=== PATIENT | male | born 1960 | race Caucasian/White ===

== ENCOUNTER 2024-01-07 16:29 | Emergency (ER) | payer OTHER, SELFPAY ==
[2024-01-07 16:32] VITALS: BP 173/85; BMI 34.4
--- NOTE | 2024-01-07 18:05 | ED.GENMED ---
History of Present Illness
General
Chief Complaint: Male Genito-Urinary Symptoms
Source: patient
Exam Limitations: none
Time Seen by Provider: 01/07/24 18:04
Nursing documentation reviewed up to this point in time: agreed with
Travel History
Have you had any contact with someone who has COVID-19?: No
Do you have any symptoms of coronavirus? Fever > 100 degrees, chills, cough, shortness of breath, sore throat, loss of taste or smell, muscle aches, or headache?: No
History of Present Illness
History of Present Illness:
63-year-old male with a history of sleep apnea with CPAP, smoker, CAD, HTN, HLD, OR, GERD, IBS, cardiac bypass x 4 in 2014, left total hip replacement, legally blind presents stating he was urinating earlier today he felt something passed through
his penis it did not feel right so he called his and and she noted clots and bloody toilet water. He denies abdominal pain or fever. He denies flank pain. He denies burning frequency or urgency with urination. He states he feels well.
Past History
Past History
ED Past Medical History: Other (optic nn problem, significant visual impairment) and Other (Sleep apnea, uses CPAP at night)
ED Past Surgical History: Cardiac (2015 cardiac bypass Auteri here) and Orthopedic (L hip replaced)
Social History
Tobacco: Former smoker
Alcohol: Occasional
Personal:
Living: with family
Employment: Disabled
Family History
Family History: Other (reviewed and non-contributory)
Review of Systems
Review of Systems
Allergies reviewed?: Yes
All Other Systems: ROS reviewed and negative except as documented in HPI and ROS
Constitutional: Denies fever or chills
EENT: Reports other (Visual impairment)
Respiratory: Denies trouble breathing
Cardiac: Denies chest pain
ABD/GI: Denies abdominal pain, nausea, vomiting, diarrhea, constipated or anorexia
: Reports bleeding; Denies dysuria, frequency, flank pain, difficulty voiding or urgency
Musculoskeletal: Reports no symptoms
Skin: Reports no symptoms
Neurological: Reports no symptoms
Phy Exam
Physical Exam
Physical Exam:
GENERAL: No acute distress. A&Ox3.
CONSTITUTIONAL: Afebrile.
EYES: PERRL, conjunctivae normal, blind
ENMT: moist mucus membranes, Pharynx nl
RESPIRATORY: Regular respirations, nonlabored, lungs clear.
CARDIOVASCULAR: Regular rate and rhythm, no murmurs, no rubs.
GI: Soft, fotund, nontender, normal BS
MUSCULOSKELETAL: Moves with ease. Well perfused.
SKIN: Warm, dry, pink
PSYCH: Normal mood and affect. Well kept, interactive and appropriate
NEUROLOGIC: Awake, alert and oriented. No focal neurological deficits
Course
Orders/Labs/Results
Orders:
Orders
01/07/24 18:14
CT Abd/pel Without Iv Or Oral Urgent
Comment:
Reason For Exam: gross hematuria
Urinalysis Reflex To Culture Urgent
Date Specimen was Collected: 01/07/24
Time Specimen was Collected: 16:36
Urine Microscopic Reflex Cult Urgent
Urine Culture Urgent
ALIYA Source: U
Specimen Description:
Date Specimen was Collected: 01/07/24
Time Specimen was Collected: 16:36
01/07/24 18:57
Complete Blood Count/With Diff Urgent
Comprehensive Metabolic Panel Urgent
01/07/24 20:22
Cefuroxime Axetil [Ceftin] 500 mg PO NOW STA
01/07/24 20:31
Add On - Microbiology Urgent
Tests Added?: urine culture
Abnormal Lab Results
01/07/24 01/07/24
18:14 18:57
Abs Immat Gran (auto) 0.1 H 10^3/uL
(0-0.05)
Absolute Monos (auto) 0.9 H 10^3/uL
(0.1-0.6)
Immature Gran % 0.6 H %
(0-0.5)
Eosinophils % 6.1 H %
(0-6)
Potassium 5.2 H mmol/L
(3.5-5.1)
Urine Ketones 1+ A
(Negative)
Ur Occult Blood Reflex 4+ A
(Negative)
Leukocyte Esterase Rfl 1+ A
(Negative)
Urine RBC >100 A /HPF
(0-2)
Urine WBC (Reflex) 11-15 A /HPF
(0-5)
Urine Albumin (Reflex) 3+ A
(Neg - Trace)
01/07/24 18:57
01/07/24 18:57
Vital Signs
Initial and Last Documented VS:
Initial Vital Signs
Temp Pulse Resp BP Pulse Ox
97.9 F 63 16 173/85 99
01/07/24 16:32 01/07/24 16:32 01/07/24 16:32 01/07/24 16:32 01/07/24 16:32
Last Documented Vital Signs
Temp Pulse Resp BP Pulse Ox
97.9 F 63 16 173/85 99
01/07/24 16:32 01/07/24 16:32 01/07/24 16:32 01/07/24 16:32 01/07/24 16:32
MDM/Problems Addressed
Differential Diagnosis Includes:
Hemorrhagic cystitis, kidney stone, malignancy
MDM/Problems Addressed:
63-year-old male with a history of sleep apnea with CPAP, smoker, CAD, HTN, HLD, OR, GERD, IBS, cardiac bypass x 4 in 2014, left total hip replacement, legally blind presents stating he was urinating earlier today he felt something passed through
his penis it did not feel right so he called his and and she noted clots and bloody toilet water. He denies abdominal pain or fever. He denies flank pain. He denies burning frequency or urgency with urination. He states he feels well.
Afebrile, NAD
Urine dark maroon
7:54 PM
UA: Greater than 100 red blood cells, +1 leukocyte Estrace, negative nitrites, 11-15 WBCs
8:04 PM
CAT scan abdomen pelvis radiology report reviewed: IMPRESSION:
1. No significant acute abnormality identified in the abdomen or pelvis, within the limits of unenhanced CT, as described above.
2. Limited evaluation within the pelvis (including the urinary bladder) due to streak artifact from the patient's left hip prosthesis. As such, a bladder mass cannot be ruled out with confidence on this exam. Direct visualization should be
considered depending on the clinical context.
CBC: Normal
CMP normal
Plan: Antibiotics and follow-up with urology. Reasons to return reviewed such as fever, vomiting, inability to urinate
Prescription for Ceftin 500 mg twice daily for 7 days sent to his pharmacy
Texted Dr. Hutchinson [facility] who will be sure staff get him in next week
*Critical Care Note
Total Time (30-74mins, 75-104mins- exclusive of procedures): Not Applicable
ED Attending Note
-
Portions of this chart may have been created with voice recognition software.� Occasional wrong word or��sound alike� substitutions may have occurred due to the inherent limitations of voice recognition software.
Discharge Plan
Departure
Patient Disposition: Home (Routine Discharge)
Date of Disposition: 01/07/24
Time of Disposition: 20:27
Patient with high blood pressure during this ER visit?: Yes
Condition: Good
Discharge Problem:
Acute hemorrhagic cystitis
Instructions: Blood in the Urine (Hematuria), Adult (DC), Acute Cystitis (DC)
Prescriptions:
New
cefuroxime axetil 500 mg tablet
500 mg PO BID 7 Days Qty: 14 0RF
No Action
sertraline 100 MG tablet
100 mg PO DAILY
aspirin 81 MG tablet,delayed release (DR/EC)
81 mg PO DAILY
ranitidine HCl [Acid Control (ranitidine)] 150 MG tablet
150 mg PO DAILY
B-complex with vitamin C 1 CAPLET tablet
1 cap PO DAILY
ezetimibe 10 MG tablet
10 mg PO DAILY
vitamin E (dl, acetate) 400 UNITS capsule
400 units PO DAILY
ramipril 5 MG capsule
5 mg PO DAILY
atorvastatin 80 MG tablet
80 mg PO QPM Qty: 30 0RF
nicotine 14 MG patch 24 hour
14 mg transdermal DAILY Qty: 30 0RF
thiamine HCl (vitamin B1) 100 MG tablet
100 mg PO DAILY Qty: 30 0RF
ascorbic acid (vitamin C) 250 MG tablet
250 mg PO DAILY Qty: 30 0RF
metoprolol tartrate 25 MG tablet
25 mg PO BID Qty: 60 0RF
folic acid-vit B6-vit B12 [WesTab Max] 1 TABLET tablet
1 tab PO DAILY Qty: 30 0RF
Referrals:
German Hutchinson MD [Active] - Call in 1-3 days for appt
Woody Pardo, [Family Provider] -
Activity Restrictions/Additional Instructions:
As we discussed, call the Urology office on Tuesday and make next available appointment.
I sent a prescription to your pharmacy for the antibiotic Ceftin to take 500 mg twice a day for 7 days.
I texted Urology Dr. Hutchinson to have his staff aware that you will be calling for appointment Tuesday.
Return here if you are unable to urinate, fever above 100.4, vomiting or feeling sicker in any way
Interventions
Interventions:
*Risk Screen - Suicide Last Done: 01/07/24 16:32
*General Assessment Last Done: 01/07/24 16:32
*Neglect/Abuse Screening Last Done: 01/07/24 16:32
ED- Fall Risk Assessment Last Done: 01/07/24 19:01
*ED COVID-19 Vaccine History Last Done: 01/07/24 16:32
*Nursing Disposition Last Done: 01/07/24 20:47
ED-Male Genitourinary Assessment Last Done: 01/07/24 19:01
Discharge Date and Time
Discharge Date/Time: 01/07/24 20:48
Print Language: CHINESE
[2024-01-07 18:22] LABS: Urine Albumin 3+ (Neg - Trace); Urine Bilirubin Negative (Negative); Urine Character Very Cloudy (Clear); Urine Color Red; Urine Glucose Negative (Negative); Urine Ketone 1+ (Negative); Urine Leukocyte 1+ (Negative); Urine Nitrite Negative (Negative); Urine Occult Blood 4+ (Negative); Urine Specific Gravity 1.015 (<1.030); Urine Urobilinogen Negative (Neg - 1+)
[2024-01-07 18:27] LABS: Urine Squamous Cell 0-2 /LPF (Few)
[2024-01-07 18:28] LABS: Urine Red Blood Cell >100 /HPF (0-2)
[2024-01-07 20:06] LABS: % Basophils 0.8 % (0-2); % Eosinophils 6.1 % (0-6); % Immature Granulocytes 0.6 % (0-0.5); % Lymphocytes 23.6 % (20.5-51.1); % Monocytes 9.1 % (1.7-9.3); % Neutrophils 59.8 % (42.2-75.2); Absolute Basophils 0.1 10^3/uL (0-0.2); Absolute Eosinophils 0.6 10^3/uL (0-0.7); Absolute Immature Granulocytes 0.1 10^3/uL (0-0.05); Absolute Lymphocytes 2.4 10^3/uL (1.2-3.4); Absolute Monocytes 0.9 10^3/uL (0.1-0.6); Absolute Neutrophils 6.1 10^3/uL (1.4-6.5); Hematocrit 42.3 % (39.0-52.0); Hemoglobin 14.3 g/dL (13.0-18.0); Mean Corp Hgb Conc. 33.8 g/dL (33.0-37.0); Mean Corpuscular Hgb 27.3 pg (27.0-31.0); Mean Corpuscular Volume 80.7 fL (80.0-94.0); Mean Platelet Volume 9.5 fL (7.4-10.4); Nucleated Red Blood Cells % 0 % (-); Platelet Count 212 10^3/uL (130-400); Red Blood Cell Count 5.24 10^6/uL (4.70-6.10); Red Cell Dist. Width 13.7 % (11.5-14.5); White Blood Cell Count 10.2 10^3/uL (4.8-10.8)
[2024-01-07 20:19] LABS: ALT (SGPT) 30 U/L (0-50); AST (SGOT) 30 U/L (17-59); Albumin 4.4 g/dl (3.5-5.0); Alkaline Phosphatase 84 U/L (38-126); Blood Urea Nitrogen 17 mg/dl (9-20); Calcium 9.7 mg/dl (8.4-10.2); Carbon Dioxide 28 mmol/L (22-30); Chloride 104 mmol/L (98-107); Estimated Creatinine Clearance 102 ml/min; Glucose 82 mg/dl (70-99); Potassium 5.2 mmol/L (3.5-5.1); Sodium 138 mmol/L (135-145); Total Bilirubin 0.6 mg/dl (0.2-1.3); Total Protein 7.3 g/dl (6.3-8.2); eGFR > 60.00
[2024-01-07] MEDS: CEFTIN 500 MG PO (20:40)
== END 2024-01-07 20:48 | disposition home or self-care (01) ==
LOC: EMR 16:29
PROVIDERS: Registered Nurse; EMERGENCY PHYSICIAN Student in an Organized Health Care Education/Training Program; FAMILY PHYSICIAN Family Medicine
DX: N30.01 Acute cystitis with hematuria (principal); I10 Essential (primary) hypertension; I25.10 Atherosclerotic heart disease of native coronary artery without angina pectoris; E78.5 Hyperlipidemia, unspecified; K21.9 Gastro-esophageal reflux disease without esophagitis; Z87.891 Personal history of nicotine dependence
CPT/HCPCS: 99285; 74176; 80053; 81003; 81015; 85025; 87086

== ENCOUNTER → 2024-01-19 11:25 | Outpatient (REF) | payer OTHER, SELFPAY | LOC: HWRAD 11:25 | PROVIDERS: ATTENDING PHYSICIAN Surgery; FAMILY PHYSICIAN Family Medicine | DX: Z87.891 Personal history of nicotine dependence (principal); R31.9 Hematuria, unspecified | CPT/HCPCS: 71271; 74178; Q9967 ==

== ENCOUNTER 2024-05-29 06:12 | Day surgery (SDC) | payer OTHER, SELFPAY ==
--- NOTE | 2024-05-24 13:00 | PTCARENOTE ---
Abn ECG, Dr. Munoz notified, no further actions requested.
[2024-05-29] VITALS (11 sets, daily range): BP systolic 104–135; BP diastolic 55–73; BMI 34.0
[2024-05-29] MEDS: TYLENOL 1000 MG PO (08:02)
[2024-05-29] MEDS: NORMOSOL-R/PLASMALYTE-A 1000 IV (08:02)
[2024-05-29] MEDS: CELEBREX 200 MG PO (08:02)
== END 2024-05-29 12:49 | disposition home or self-care (01) ==
LOC: SDS 06:12
PROVIDERS: ATTENDING PHYSICIAN Specialist
DX: M75.101 Unspecified rotator cuff tear or rupture of right shoulder, not specified as traumatic (principal); M12.811 Other specific arthropathies, not elsewhere classified, right shoulder; M75.41 Impingement syndrome of right shoulder; M54.12 Radiculopathy, cervical region; H54.8 Legal blindness, as defined in USA
CPT/HCPCS: 23430; 29807; 29827; 29828; C1713

== ENCOUNTER → 2025-05-31 12:57 | Outpatient (REF) | payer OTHER, MEDICARE, SELFPAY | LOC: HWRAD 12:57 | DX: Z87.891 Personal history of nicotine dependence (principal); F17.210 Nicotine dependence, cigarettes, uncomplicated | CPT/HCPCS: 71271 ==

== ENCOUNTER → 2025-06-04 07:38 | Outpatient (REF) | payer OTHER, MEDICARE, SELFPAY | LOC: RAD 07:38 | PROVIDERS: ATTENDING PHYSICIAN Family Medicine | DX: J43.9 Emphysema, unspecified (principal); I63.9 Cerebral infarction, unspecified | CPT/HCPCS: 76770; 93880 ==